=== PATIENT | female | born 1975 | race Caucasian/White ===

== ENCOUNTER 2021-08-02 20:44 | Observation (INO) ==
[2021-08-02] MEDS ORDERED: ONDANSETRON 4 MG/2 ML VIAL IV STA (21:23)
[2021-08-02] MEDS ORDERED: ASPIRIN 325 MG TABLET PO STA (21:23)
[2021-08-02] MEDS ORDERED: SODIUM CHLORIDE 0.9% 1,000 ML IV STA (21:25)
[2021-08-02 21:33] LABS: Basophils # 0.1 10*3/uL (0.0-0.2); Basophils % 0.6 % (0.0-0.8); Eosinophils # 0.4 10*3/uL (0.0-0.87); Eosinophils % 3.7 % (0.00-10.9); Hematocrit 40.8 VOL% (35.7-47.0); Hemoglobin 13.3 GM/DL (12.0-16.0); Immature Granulocytes % 0.3 %; Immature Granulocytes Absolute 0.04 #; Lymphocytes # 3.4 10*3/uL (1.4-4.0); Lymphocytes % 29.7 % (21.3-54.2); Mean Corpuscular HGB Conc 32.6 GM/DL (32-36); Mean Platelet Volume 8.9 FL (9.6-12.0); Monocytes % 6.3 % (1.7-12.7); Neutrophils % 59.4 % (38.7-73.9); Platelet Count 338 T/CUMM (130-400); Red Blood Count 4.86 MC/CUMM (3.8-5.5); Red Cell Distribution Width 13.1 % (9.3-17.3); White Blood Count 11.6 T/CUMM (4-12)
[2021-08-02] MEDS: NITROGLYCERIN SL 0.4 MG TABLET SL PRN ×3 (21:40→21:51)
[2021-08-02 21:53] LABS: Alanine Aminotransferase 34 U/L (13-56); Albumin 3.6 G/DL (3.4-5.0); Alkaline Phosphatase 139 U/L (45-117); Aspartate Amino Transferase 21 U/L (0-37); Bilirubin,Total < 0.39 MG/DL (0.20-1.00); Blood Urea Nitrogen 8 MG/DL (7-18); Calcium 9.5 MG/DL (8.5-10.1); Carbon Dioxide 31 MMOL/L (21-32); Estimated Glom Filtration Rate 91 ML/MIN; Glucose 106 MG/DL (74-106); Osmolality,Calculated 272.7 MOS/KG (273-304); Potassium 4.3 MMOL/L (3.5-5.1); Sodium 138 MMOL/L (136-145)
[2021-08-02] MEDS ORDERED: MORPHINE 2 MG/1 ML SYRINGE IV STA (21:54)
[2021-08-02] MEDS ORDERED: ALUM/MAG/SIMETH/LIDO VISC 1:1 30 ML BOTTLE PO STA (22:01)
[2021-08-02 22:28] LABS: PT Patient Result 10.7 SECS (10.5-12.0)
[2021-08-02] MEDS ORDERED: MORPHINE 2 MG/1 ML SYRINGE IV PRN (22:35)
[2021-08-02] MEDS ORDERED: ACETAMINOPHEN 325 MG TABLET PO PRN (22:35)
[2021-08-03 01:14] LABS: Bilirubin,Urine Negative (Negative); Blood, Urine Negative (Negative); Glucose,Urine (UA) Negative (Negative); Ketones,Urine Negative (Negative); Mucus,Urine Occasional /LPF (Occasional); Nitrite,Urine Negative (Negative); Protein,Urine Negative; RBC,Urine 1 /HPF (0-4); Squamous Epithelial Cell,Urine Occasional /HPF (0-10); Urine Appearance CLEAR (Clear); Urine Color Yellow (Yellow); Urine Specific Gravity 1.006 (1.001-1.035); Urine Urobilinogen < 2.0 EU/DL (0.2-1.0)
[2021-08-03 05:16] LABS: Basophils # 0.1 10*3/uL (0.0-0.2); Basophils % 0.7 % (0.0-0.8); Eosinophils # 0.3 10*3/uL (0.0-0.87); Hematocrit 37.5 VOL% (35.7-47.0); Hemoglobin 12.1 GM/DL (12.0-16.0); Immature Granulocytes % 0.3 %; Immature Granulocytes Absolute 0.02 #; Lymphocytes # 3.5 10*3/uL (1.4-4.0); Lymphocytes % 45.4 % (21.3-54.2); Mean Corpuscular HGB Conc 32.3 GM/DL (32-36); Mean Platelet Volume 9.1 FL (9.6-12.0); Monocytes % 5.5 % (1.7-12.7); Neutrophils % 44.1 % (38.7-73.9); Platelet Count 296 T/CUMM (130-400); Red Blood Count 4.41 MC/CUMM (3.8-5.5); Red Cell Distribution Width 13.2 % (9.3-17.3); White Blood Count 7.7 T/CUMM (4-12)
[2021-08-03 05:38] LABS: Albumin 2.9 G/DL (3.4-5.0); Bilirubin,Total 0.6 MG/DL (0.20-1.00); Calcium 8.5 MG/DL (8.5-10.1); Osmolality,Calculated 271.7 MOS/KG (273-304); Potassium 3.7 MMOL/L (3.5-5.1)
[2021-08-03 05:44] LABS: Lymphocytes 44 % (20-55); Platelet Estimate Normal; Segmented Neutrophils 47 % (50-85); Total Cells Counted 100
[2021-08-03] MEDS: PANTOPRAZOLE 40 MG TABLET PO SCH (08:20)
[2021-08-03] MEDS ORDERED: ASPIRIN CHEW 81 MG TABLET PO SCH (09:00)
[2021-08-03 12:10] LABS: Barbiturates Screen,Urine Negative (Negative); Benzodiazepines Screen,Urine Negative (Negative); Cannabinoid Screen,Urine Negative (Negative); Opiate Screen,Urine Positive (Negative); Phencyclidine Screen,Urine Negative (Negative)
[2021-08-03] MEDS: ASPIRIN EC 81 MG TABLET PO SCH (13:17)
[2021-08-03] MEDS ORDERED: VORTIOXETINE 20 MG PO SCH (13:30)
[2021-08-03] MEDS ORDERED: MIRABEGRON 25 MG PO SCH (13:30)
[2021-08-03] MEDS: rOPINIRole 1 MG TABLET PO SCH ×2 (13:48→20:11)
[2021-08-03] MEDS: ZIPRASIDONE 20 MG CAPSULE PO SCH ×2 (13:48→20:12)
[2021-08-03] MEDS ORDERED: KETOROLAC 15 MG/1 ML VIAL IV PRN (16:55)
[2021-08-03] MEDS ORDERED: KETOROLAC 30 MG/1 ML VIAL IV ONE (16:55)
[2021-08-03] MEDS ORDERED: MAGNESIUM SULF RIDER 2 GM/50 ML PREMIX IV PRN (17:09)
[2021-08-03] MEDS ORDERED: POTASSIUM CHLORIDE RIDER 10 MEQ/100 ML PREMIX IV PRN (17:09)
[2021-08-03] MEDS: SODIUM CHLORIDE 0.45% 1,000 ML IV SCH (18:57)
[2021-08-03] MEDS: hydrOXYzine HCL 25 MG TABLET PO SCH (20:11)
[2021-08-04 03:53] LABS: Basophils % 0.6 % (0.0-0.8); Eosinophils # 0.4 10*3/uL (0.0-0.87); Eosinophils % 5.6 % (0.00-10.9); Hematocrit 37.8 VOL% (35.7-47.0); Hemoglobin 12.3 GM/DL (12.0-16.0); Immature Granulocytes % 0.2 %; Immature Granulocytes Absolute 0.01 #; Lymphocytes % 46.8 % (21.3-54.2); Mean Corpuscular HGB Conc 32.5 GM/DL (32-36); Mean Corpuscular Volume 84.6 FL (87-102); Mean Platelet Volume 8.8 FL (9.6-12.0); Monocytes % 6.8 % (1.7-12.7); Platelet Count 293 T/CUMM (130-400); Red Blood Count 4.47 MC/CUMM (3.8-5.5); White Blood Count 6.4 T/CUMM (4-12)
[2021-08-04 04:11] LABS: Calcium 8.3 MG/DL (8.5-10.1); Osmolality,Calculated 274.5 MOS/KG (273-304); Potassium 3.9 MMOL/L (3.5-5.1)
[2021-08-04 04:43] LABS: Microcytosis 1+
[2021-08-04 04:44] LABS: Platelet Estimate Adequate
[2021-08-04] MEDS: SODIUM CHLORIDE 0.45% 1,000 ML IV SCH ×2 (06:33→21:40)
[2021-08-04] MEDS: NITROGLYCERIN SL 0.4 MG TABLET SL PRN ×3 (06:42→06:54)
[2021-08-04] MEDS: ENALAPRIL 10 MG TABLET PO SCH (08:52)
[2021-08-04] MEDS: hydroCHLOROthiazide 12.5 MG CAPSULE PO SCH (08:52)
[2021-08-04] MEDS: METOPROLOL SUCCINATE XL 50 MG TABLET PO SCH (08:52)
[2021-08-04] MEDS: PANTOPRAZOLE 40 MG TABLET PO SCH (09:08)
[2021-08-04] MEDS: rOPINIRole 1 MG TABLET PO SCH ×2 (09:08→21:09)
[2021-08-04] MEDS: ZIPRASIDONE 20 MG CAPSULE PO SCH ×2 (09:08→21:10)
[2021-08-04] MEDS: ASPIRIN EC 81 MG TABLET PO SCH (12:10)
[2021-08-04] MEDS ORDERED: DIAZEPAM 5 MG TABLET PO ONE (13:00)
[2021-08-04] MEDS ORDERED: diphenhydrAMINE CAP 25 MG CAPSULE PO ONE (13:00)
[2021-08-04] MEDS ORDERED: NICOTINE 14 MG/24 HR PATCH TRANSDERM PRN (13:49)
[2021-08-04] MEDS ORDERED: fentaNYL 100 MCG/2 ML VIAL ONE (15:47)
[2021-08-04] MEDS ORDERED: MIDAZOLAM 2 MG/2 ML VIAL ONE ×2 (15:47→16:03)
[2021-08-04] MEDS ORDERED: ACETAMINOPHEN/CODEINE 300-30 MG TABLET PO PRN (16:20)
[2021-08-04] MEDS ORDERED: HEPARIN/NACL 0.9% 2 UNITS/ML 2,000 UNIT/1,000 ML BAG IV ONE (16:21)
[2021-08-04] MEDS ORDERED: LIDOCAINE 1% 20 ML VIAL ONE (16:21)
[2021-08-04] MEDS ORDERED: ATORVASTATIN 40 MG TABLET PO SCH (21:00)
[2021-08-04] MEDS: hydrOXYzine HCL 25 MG TABLET PO SCH (21:09)
[2021-08-04] MEDS: ONDANSETRON 4 MG/2 ML VIAL IV PRN (23:10)
[2021-08-05 09:27] VITALS: BP 102/56
[2021-08-05] MEDS: rOPINIRole 1 MG TABLET PO SCH (09:27)
[2021-08-05] MEDS: PANTOPRAZOLE 40 MG TABLET PO SCH (09:27)
[2021-08-05] MEDS: METOPROLOL SUCCINATE XL 50 MG TABLET PO SCH (09:27)
[2021-08-05] MEDS: hydroCHLOROthiazide 12.5 MG CAPSULE PO SCH (09:27)
[2021-08-05] MEDS: ZIPRASIDONE 20 MG CAPSULE PO SCH (09:27)
[2021-08-05] MEDS: ENALAPRIL 10 MG TABLET PO SCH (09:28)
[2021-08-05] MEDS: SODIUM CHLORIDE 0.45% 1,000 ML IV SCH (09:28)
[2021-08-05] MEDS: ONDANSETRON 4 MG/2 ML VIAL IV PRN (10:06)
[2021-08-05 10:57] LABS: Basophils % 0.6 % (0.0-0.8); Eosinophils # 0.3 10*3/uL (0.0-0.87); Hematocrit 39.7 VOL% (35.7-47.0); Hemoglobin 13.1 GM/DL (12.0-16.0); Immature Granulocytes % 0.3 %; Immature Granulocytes Absolute 0.02 #; Lymphocytes # 1.9 10*3/uL (1.4-4.0); Lymphocytes % 29.9 % (21.3-54.2); Mean Corpuscular Volume 82.7 FL (87-102); Monocytes % 7.6 % (1.7-12.7); Neutrophils % 57.6 % (38.7-73.9); Platelet Count 318 T/CUMM (130-400); Red Cell Distribution Width 12.9 % (9.3-17.3); White Blood Count 6.5 T/CUMM (4-12)
[2021-08-05 11:08] LABS: Calcium 9.3 MG/DL (8.5-10.1); Potassium 3.8 MMOL/L (3.5-5.1)
== END 2021-08-05 10:32 | disposition home or self-care (01) ==
LOC: N.EDINP 20:44 → N.ED 20:44 → N.EDINP 23:55 → N.TELEN 08-03 00:09
PROVIDERS: ADMIT Internal Medicine; ATTEND Internal Medicine
PROC: CLCCHCL (ICD-10-PCS; 2021-08-04 16:15)